=== PATIENT | male | born 1960 | race Caucasian/White ===

== ENCOUNTER 2017-07-28 14:00 | Outpatient (RCR) | payer OTHER, SELFPAY ==
--- NOTE | 2017-06-30 14:51 | HP.PTEVAL_ITS ---
Patient's Visit Information LUKE CARR is a 56 year old M referred to Physical Therapy by DO TENZIN Mendez with a diagnosis of R knee effusion. Date of Evaluation: 06/30/17 Physical Therapist: Steven Simpson DPT, OC - Visit Plan Frequency: 3x /Week Duration: 4 Weeks Plan: 3x/week for 4 weeks for strenghening R knee and hip adn progression back to function and gait without increasing pain or swelling. Progress to home strength. Stretch quad and hip flexors. Rollout as needed. - Subjective Subjective: Slipped planting R knee and felt a pop on 06/14/16. Is getting better some days. Had MRI already adn shows meniscal tear. Had bad swelling and pain since. aspirated last Wednesday adn feel better since then. Buckled this morning. Had h/o meniscal surgery two years ago and was having no problems. Sleep is up every few hours which is not unusual for him. Doctor wants PT. 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 Is still working and does not call off. Activities: basicsd OK. Hobbies includes reading to [employer]. Does everything but it hurts like hell and it pops or gives out. - Pain R knee pain anterior. Pain Intensity (Out of 10): 3 Pain Intensity Range: 3, 10 - Objective Walks in without a limp today I, trasnfers I, bed mobility I. AROM R knee 0-135 , 140 passively. Has pain at end range of ext and flexion. Steps are reciprocal but descending very painful on R, needs rail due to might give out . quads and hip flexors are max tight B R>L. strength is 4+ R knee ext adn flex, ext painful mildly. L knee 5/5. Hip AROM WFL and 4/5. ankles full aROM and 4+/5. Tender to touch medial joint line R minimally. Swelling is only slight noticeable only due to brace tightness on R. - anterior drawer adn yael. - varus and valgus B. + bounce home R - Goals Goal 1:: R knee full ROM without popping without increased pain. Goal Time Frame: 4-6 Weeks Goal 2:: 5/5 strength R knee and hip to minimize future problems. Goal Time Frame: 4-6 Weeks Goal 3:: Walk in community without increased pain. Goal Time Frame: 4-6 Weeks Goal 4:: Steps reciprocally without pain or UE. Goal Time Frame: 4-6 Weeks Goal 5:: Work without increased pain. Goal Time Frame: 4-6 Weeks - Rehabilitation Potential Physical Therapy Diagnosis: R knee effusion and pain, meniscus. Rehabilitation Potential: Fair - Anticipated Interventions Patient/Client Instruction: Educate patient on: Condition, Plan of Care For the Purpose of:: To decrease pain, To improve ability of physical actions for home/community/work/leisure Therapeutic Exercise to Include: Strength training, Flexibilty training, Gait and locomotor training, Passive ROM, Active ROM For the Purpose of:: To decrease pain, To increase ROM, To improve ability of physical actions for home/community/work/leisure, To improve gait and locomotor functions Manual Therapy Techniques to Include: Passive ROM For the Purpose of:: To increase ROM Cryotherapy (ice pack, ice massage): Yes For the Purpose of:: To decrease swelling/inflammation Thank you for the opportunity to evaluate your patient. For Medicare and Medicare HMO plans, please review the plan of care and approve it. It will need to be FAXED BACK to us at [phone] for Medicare purposes. Please let me know if there are questions or concerns regarding this plan of care. Physician Signature: Date:
--- NOTE | 2017-07-28 15:28 | HP.PTDCSUM ---
HP - PT D/C Summary It has been my pleasure to treat LUKE CARR under orders from Alexandre De La Cruz DO, for the diagnosis of R knee effusion for a total of 11 visit(s). Discharge Date: 07/28/17 Please see the following information for a summary of their discharge status. - Subjective Subjective: I'm probably a little stronger but I still have intermittent pains. Most prevalent when going up and down stairs. Notes no notable functional improvement though. - Pain R knee pain anterior. Pain Intensity (Out of 10): 0 - Overall Improvement % Improvement: 50 - Objective Objective/Function: AROM Right Knee: 5-145 deg and 154 deg passively. 0/10 pain today. - Goals Goal 1:: R knee full ROM without popping without increased pain. Goal Progress: Goal Met Goal 2:: 5/5 strength R knee and hip to minimize future problems. Goal Progress: not tested. Goal 3:: Walk in community without increased pain. Goal Progress: Goal Met Goal 4:: Steps reciprocally without pain or UE. Goal Progress: Progressing Goal 5:: Work without increased pain. Goal Progress: Goal Met - Plan Plan: Probable dschare to independent. Pt does not wish to return for final check, says he is doing OK and no pain or limitations except sharp transient pain up steps. - D/C Information Discharge Comments: Pt feeling good and ready to be done. Will f/u with doctor at [facility] but does nto feel he needs further therapy. If there are questions or concerns regarding this patient's physical therapy, please feel free to call me at [phone]. Thank you for the referral of this patient. Sincerely, Steven Simpson, DPT, OC
== END 2017-07-28 19:00 | disposition home or self-care (01) ==
LOC: PT 14:00
PROVIDERS: Family Provider Family Medicine; PCP Family Medicine; Visit Provider Orthopaedic Surgery
DX: M25.461 Effusion, right knee (principal)
CPT/HCPCS: 97110; 97161

== ENCOUNTER → 2018-06-22 11:34 | Outpatient (CLI) | payer OTHER, SELFPAY ==
[2018-06-22 11:56] LABS: Erythrocyte Sedimentation Rate 4 mm/hr (0-20)
[2018-06-22 12:05] LABS: Absolute Lymphocyte Count 1.41 X10^3/ul (0.83-4.51); Absolute Neutrophil Count 2.8 X10^3/uL (2.0-7.7); Basophil# 0.03 X10^3/uL; Basophil% 0.6 % (0-1); Eosinophil# 0.08 X10^3/uL; Eosinophils% 1.7 % (0-5); Hematocrit 41.4 % (40-54); Hemoglobin 14.3 g/dl (13.0-16.5); Lymphocyte # 1.41 X10^3/ul (4.0); Lymphocyte % 29.9 % (19-41); Mean Corp Hgb Conc 34.5 g/gl (32-36); Mean Corpuscular Hgb 30.9 pg (27.0-32.0); Mean Corpuscular Volume 89.4 fL (80-94); Mean Platelet Vol. 9.1 fl (6.2-12.0); Monocyte# 0.34 X10^3/uL; Monocyte% 7.2 % (0-10); Neutrophil # 2.84 X10^3/uL (2.7-7.7); Neutrophil % 60.4 % (47-70); Platelet Count 277 K/mm3 (150-450); RBC Distribution Width SD 42.3 fl (35.1-43.9); Red Blood Count 4.63 M/mm3 (4.6-6.2); White Blood Count 4.7 K/mm3 (4.4-11.0)
[2018-06-22 12:06] LABS: POSITIVE COUNT NO; POSITIVE DIFFERENTIAL NO; POSITIVE MORPHOLOGY NO
[2018-06-22 12:17] LABS: ALB/GLOB Ratio 1.2 RATIO (0.9-2.4); AST(SGOT) 26 U/L (15-37); Alanine Aminotransfer ALT/SGPT 50 U/L (16-61); Albumin, Serum 4.2 g/dL (3.2-5.0); Alkaline Phosphatase 78 U/L (45-117); Anion Gap 8 (5-15); BUN 16 mg/dL (7-18); BUN/Creat Ratio 16.3 RATIO (10-20); Chloride 103 mmol/L (98-107); Creatinine, Serum 0.98 mg/dL (0.70-1.30); EST Glomerular Filtration Rate 84 mL/min (>60); Est Glom Filt Rate - Afr Amer 101 mL/min (>60); Globulin 3.5 g/dL (2.2-4.2); Glucose 89 mg/dL (74-106); Protein, Total 7.7 g/dL (6.4-8.2); Sodium Level 140 mmol/L (136-145); Thyroid Stim Hormone (TSH) 1.69 uIU/mL (0.358-3.74)
[2018-06-22 12:18] LABS: Vitamin B12 336 pg/mL (211-911); Vitamin D,25 Hydroxy 26.5 ng/mL (29.95-100.01)
--- OUTSIDE RECORDS SUMMARY | 2018-08-27 07:41 | XMS RPT_ITS ---
:1960 Author Organization OHIP Care Team Providers Name Role Phone Reyes Smith Attending Unavailable Reyes Smith Primary Care Unavailable Reyes Smith Attending Unavailable Reyes Smith Referring Unavailable Reyes Smith Primary Care Unavailable Alexandre De La Cruz Attending Unavailable Alexandre De La Cruz Referring Unavailable Reyes Smith Primary Care Unavailable Alexandre De La Cruz Attending Unavailable Reyes Smith Referring Unavailable Reyes Smith Primary Care Unavailable ASSESSMENT, HEALTH RISK Attending Unavailable Reyes Smith Primary Care Unavailable PROBLEMS PROBLEMS DATE TYPE CONDITION / CODE ATTENDING STATUS SOURCE 09/17/2017 Unknown S83.242D - Other Alexandre De La Cruz Active [place] tear of medial Community meniscus, current Hospital injury, left Repository knee, subsequent encounter / S83.242D(ICD-10) 09/17/2017 Unknown S83.511D - Sprain Jono, Alexandre Active [place] of anterior Community cruciate ligament Hospital of right knee, Repository subsequent encounter / S83.511D(ICD-10) 09/17/2017 Unknown S83.411D - Sprain Jono, Alexandre Active [place] of medial Community collateral Hospital ligament of right Repository knee, subsequent encounter / S83.411D(ICD-10) 11/17/2017 Unknown M25.461 - Alexandre De La Cruz Active [place] Effusion, right [facility] knee / Hospital M25.461(ICD-10) Repository PROCEDURES PROCEDURES No Procedure Records FoundRESULTS RESULTS BRAIN/HEAD WITHOUT Observed: 06/27/2018 Status: F Source: [place] CONTRAST 7:14 AM [facility] REPOSITORY [facility] Imaging Services [address] [place] [address] Brain/Head without Contrast MR#: [id number] Acct: [id number] Name: LUKE CARR Rep #: [id number] : 1960 M 57 From: Nino Hooper MD PCP: Reyes Smith MD Status: REG CLI Study: Brain/Head without Contrast Date of Exam: 06/27/18 Exam# [id number] Ordering Dr: Dimitri Smith MD STUDY: CT BRAIN WITHOUT CONTRAST REASON FOR EXAM: Male, 57 years old. Dizziness. History of chronic sinusitis. RADIATION DOSAGE (If Supplied By Facility): CTDIvol = ( 44.99 ) mGy, DLP = ( 779.24 ) mGycm TECHNIQUE: Transaxial CT imaging of the brain was performed without administration of intravenous contrast material. Individualized dose optimization techniques were used for this CT. COMPARISON: None. FINDINGS: Normal soft tissue structures. Normal calvarium. Normal size ventricles and extra-axial spaces for the patient's age. Normal white matter tracts of the cerebral hemispheres. Normal basal ganglia and thalami. Normal brainstem. Normal cerebellum. There is no intracranial hemorrhage. There are no findings of an acute ischemic infarction. Nodular mucosal thickening at the base of the left maxillary sinus. CT/Brain/Head without Contrast IMPRESSION: Normal unenhanced CT scan of the brain. Nodular mucosal thickening at the base of the left maxillary sinus. Electronically Signed: Nion Hooper MD at 13:07 EST Tel [phone], Service support , CC: Reyes Smith MD Radio Host: Signed SINUS/FACIAL BONE Observed: 06/27/2018 Status: F Source: [place] 7:14 AM [facility] REPOSITORY [facility] Imaging Services [address] [place] [address] Sinus/Facial Bone MR#: [id number] Acct: [id number] Name: LUKE CARR Rep #: [id number] : 1960 57 From: Nino Hooper MD PCP: Reyes Smith MD Status: REG CLI Study: Sinus/Facial Bone Date of Exam: 06/27/18 Exam# [id number] Ordering Dr: Dimitri Smith MD STUDY: CT MAXILLOFACIAL SINUSES REASON FOR EXAM: Male, 57 years old. Dizziness/sinusitis. RADIATION DOSAGE (If Supplied By Facility): CTDIvol = ( 29.38 ) mGy, DLP = ( 422.57 ) mGycm TECHNIQUE: The patient was scanned in a multi detector CT scanner. High resolution axial imaging was performed without the administration of intravenous contrast material. Sagittal and coronal images were reconstructed. Individualized dose optimization techniques were used for this CT. COMPARISON: Comparison is made with prior study dated June 19, 2014. FINDINGS: FRONTAL SINUSES: Normal aeration, without mucosal inflammatory disease. ETHMOIDAL SINUSES: Minimal mucosal thickening of the ethmoid sinuses. MAXILLARY SINUSES: Nodular mucosal thickening at the base of the left maxillary sinus. This is unchanged. SPHENOIDAL SINUSES: Normal aeration, without mucosal inflammatory disease. There is patency of the bilateral maxillary infundibuli with normal uncinate processes, ethmoid bullae, and hiatus semilunaris. Normal bilateral middle turbinates. Normal bilateral inferior turbinates. Nasal septal deviation towards the right side of the midline. There is patency of the bilateral nasal airways. The visualized osseous structures are normal. The visualized bilateral orbital contents are normal. CT/Sinus/Facial Bone IMPRESSION: Stable examination. Electronically Signed: Nino Hooper MD at 13:12 EST Tel [phone], Service support , CC: Reyes Smith MD Radio Host: Signed ERYTHROCYTE SED RATE Collected: 06/22/2018 Status: F Source: [place] 11:45 AM [facility] REPOSITORY TYPE CODE TESTS RESULT OUT OF RANGE REFERENCE UNITS LAB L102.0000 0-20 mm/hr Normal SED RATE 4 Performed By: #### L101.9900, L100.0100, L500.4050, L501.9520, L503.0105, L506.1000 #### [facility] [address] [place], [address] CBC W/DIFF, AUTOMATED Collected: 06/22/2018 Status: F Source: [place] 11:45 AM [facility] REPOSITORY TYPE CODE TESTS RESULT OUT OF RANGE REFERENCE UNITS LAB L100.1000 4.4-11.0 K/mm3 Normal WBC 4.7 LAB L100.1200 4.6-6.2 M/mm3 Normal RBC 4.63 LAB L100.1300 13.0-16.5 g/dl Normal HGB 14.3 LAB L100.1400 40-54 % Normal HCT 41.4 LAB L100.1500 80-94 fL Normal MCV 89.4 LAB L100.1600 27.0-32.0 pg Normal MCH 30.9 LAB L100.1700 32-36 g/gl Normal MCHC 34.5 LAB L100.1810 11.6-14.6 % Normal RDW CV 13.0 LAB L100.1820 35.1-43.9 fl Normal RDW SD 42.3 LAB L100.1900 150-450 K/mm3 Normal PLT 277 LAB L100.2000 6.2-12.0 fl Normal MPV 9.1 LAB L100.2100 47-70 % Normal NEUT% 60.4 LAB L100.2200 19-41 % Normal LY% 29.9 LAB L100.2300 0-10 % Normal MONO% 7.2 LAB L100.2400 0-5 % Normal EO% 1.7 LAB L100.2500 0-1 % Normal BASO% 0.6 LAB L100.2550 0.0-0.9 % Normal IM GRAN % 0.200 Result Comment: IG% - Immature Granulocytes (promyelocytes, myelocytes and metamyelocytes) > 1% indicates that a LEFT SHIFT is Present. LAB L100.2620 2.0-7.7 X10 3/uL Normal Absolute Neut 2.8 LAB L100.2720 0.83-4.51 X10 3/ul Normal Absolute Lymph 1.41 Performed By: #### L101.9900, L100.0100, L500.4050, L501.9520, L503.0105, L506.1000 #### [facility] [address] [place], [place], [address] COMPREHENSIVE METABOLIC Collected: 06/22/2018 Status: F Source: [facility] 11:45 AM [facility] REPOSITORY TYPE CODE TESTS RESULT OUT OF RANGE REFERENCE UNITS LAB L501.0100 74-106 mg/dL Normal GLU 89 Result Comment: Please note revised GLUCOSE reference range effective 2017. LAB L501.1000 7-18 mg/dL Normal BUN 16 LAB L501.1100 0.70-1.30 mg/dL Normal CREAT,SERUM 0.98 Result Comment: The validity of the calculated GFR AND GFRAA in patients over 70 years has not been determined. Clinical correlation is essential. LAB L501.1110 >60 mL/min Normal EST GFR 84 Result Comment: Non- GFR Calc LAB L501.1115 >60 mL/min Normal EST GFR - AA 101 Result Comment: GFR Calc LAB L501.1300 10-20 RATIO Normal BUN/CRE 16.3 LAB L501.1500 6.4-8.2 g/dL T Normal PROT 7.7 LAB L501.1800 3.2-5.0 g/dL Normal ALB 4.2 LAB L501.1950 2.2-4.2 g/dL Normal GLOB 3.5 LAB L501.2000 0.9-2.4 RATIO Normal A/G 1.2 LAB L501.2200 8.5-10.1 mg/dL CA Normal 9.0 LAB L501.4100 15-37 U/L Normal AST 26 LAB L501.4305 45-117 U/L Normal ALK P 78 LAB L501.4405 16-61 U/L Normal ALT 50 LAB L501.4600 0.20-1.00 mg/dL T Normal BILI 0.30 LAB L501.5300 136-145 mmol/L NA Normal 140 LAB L501.5600 3.5-5.1 mmol/L K Normal 4.0 LAB L501.5900 98-107 mmol/L CL Normal 103 LAB L501.6100 21.0-32.0 mmol/L Normal CO2 29.0 LAB L501.6200 5-15 Normal GAP 8 Performed By: #### L101.9900, L100.0100, L500.4050, L501.9520, L503.0105, L506.1000 #### [facility] [address] [place] [address], [address] THYROID STIM HORMONE Collected: 06/22/2018 Status: F Source: [place] ([facility]) 11:45 AM [facility] REPOSITORY TYPE CODE TESTS RESULT OUT OF RANGE REFERENCE UNITS LAB L501.9520 0.358-3.74 uIU/mL Normal TSH 1.69 Performed By: #### L101.9900, L100.0100, L500.4050, L501.9520, L503.0105, L506.1000 #### [facility] [address] [place], [address] VITAMIN B12 Collected: 06/22/2018 Status: F Source: [place] 11:45 AM [facility] REPOSITORY TYPE CODE TESTS RESULT OUT OF RANGE REFERENCE UNITS LAB L503.0105 211-911 pg/mL Normal Vitamin B12 336 Performed By: #### L101.9900, L100.0100, L500.4050, L501.9520, L503.0105, L506.1000 #### [facility] [address] [place], [address] VITAMIN D,25 HYDROXY Collected: 06/22/2018 Status: F Source: [place] 11:45 AM [facility] REPOSITORY TYPE CODE TESTS RESULT OUT OF REFERENCE UNITS RANGE LAB L506.1000 29.95-100.01 ng/mL Low Vitamin D 26.5 25-OH Result Comment: Vitamin D 25(OH) Status Range Deficiency <20 ng/mL (50nmol/L) Insuffciency 20 - 30 ng/mL (50 - 75 nmol/L) Sufficiency 30 - 100 ng/mL (75 - 250 nmol/L) Toxicity >100 ng/mL (>250 nmol/L) Performed By: #### L101.9900, L100.0100, L500.4050, L501.9520, L503.0105, L506.1000 #### [facility] [address], [address] CBC, EMPLOYEE Collected: 01/14/2018 Status: F Source: [place] 2:00 PM [facility] REPOSITORY TYPE CODE TESTS RESULT OUT OF RANGE REFERENCE UNITS LAB L100.1000 4.4-11.0 K/mm3 Normal WBC 5.4 LAB L100.1200 4.6-6.2 M/mm3 Normal RBC 4.62 LAB L100.1300 13.0-16.5 g/dl Normal HGB 14.2 LAB L100.1400 40-54 % Normal HCT 41.5 LAB L100.1500 80-94 fL Normal MCV 89.8 LAB L100.1600 27.0-32.0 pg Normal MCH 30.7 LAB L100.1700 32-36 g/gl Normal MCHC 34.2 LAB L100.1810 11.6-14.6 % Normal RDW CV 13.0 LAB L100.1820 35.1-43.9 fl Normal RDW SD 42.3 LAB L100.1900 150-450 K/mm3 Normal PLT 238 LAB L100.2000 6.2-12.0 fl Normal MPV 9.1 LAB L100.2110 47-70 % Normal NEUT% 57.2 LAB L100.2210 19-41 % Normal LY% 34.4 LAB L100.2310 0-10 % Normal MONO% 5.4 LAB L100.2410 0-5 % Normal EO% 2.2 LAB L100.2510 0-1 % Normal BASO% 0.4 LAB L100.2620 2.0-7.7 X10 3/uL Normal Absolute Neut 3.1 LAB L100.2720 0.83-4.51 X10 3/ul Normal Absolute Lymph 1.84 Performed By: #### L100.0200 #### [facility] [address] [facility] [place], [place], [id number] NICOTINE URINE DRUG Collected: 01/14/2018 Status: F Source: [place] SCREEN 2:00 PM [facility] REPOSITORY TYPE CODE TESTS RESULT OUT OF RANGE REFERENCE UNITS LAB L505.6250 TO BE Normal CONFIRMED Result Comment: CONFIRMATORY TESTING FOR ALL POSITIVE URINE DRUG SCREEN RESULTS WILL ONLY BE SENT OUT UPON PHYSICIAN ORDER. The results of Urine Drug Screen methods provide only preliminary analytical test results. A more specific alternate chemical method must be used in order to obtain a confirmed analytical result. Gas chromatography/mass spectrometery (GC/MS) is the preferred confirmatory method. Clinical consideration and professional judgement should be applied to any drug of abuse test result, particularly when preliminary positive results are used. LAB L505.6270 <200 ng/mL Normal COT DRG Positive SCREEN Result Comment: Cotinine is the first-stage metabolite of Nicotine. Performed By: #### L505.6240 #### [facility] [address] [facility]. [place], [place], [address] EMPLOYEE PROFILE Collected: 01/14/2018 Status: F Source: [place] 2:00 PM [facility] REPOSITORY TYPE CODE TESTS RESULT OUT OF RANGE REFERENCE UNITS LAB L501.0100 74-106 mg/dL Normal GLU 80 Result Comment: Please note revised GLUCOSE reference range effective 2017. LAB L501.1000 7-18 mg/dL Normal BUN 16 LAB L501.1100 0.70-1.30 mg/dL Normal CREAT,SERUM 1.04 Result Comment: The validity of the calculated GFR AND GFRAA in patients over 70 years has not been determined. Clinical correlation is essential. LAB L501.1110 >60 mL/min Normal EST GFR 79 Result Comment: Non- GFR Calc LAB L501.1115 >60 mL/min Normal EST GFR - AA 95 Result Comment: GFR Calc LAB L501.1300 10-20 RATIO Normal BUN/CRE 15.4 LAB L501.1400 3.5-7.2 mg/dL Normal URIC 4.8 Result Comment: The drugs N-Acetylcysteine and Metamizole may falsely depress this assay. LAB L501.1500 6.4-8.2 g/dL Normal T PROT 7.9 LAB L501.1800 3.2-5.0 g/dL Normal ALB 4.1 LAB L501.1950 2.2-4.2 g/dL Normal GLOB 3.8 LAB L501.2000 0.9-2.4 RATIO Normal A/G 1.1 LAB L501.2200 8.5-10.1 mg/dL Normal CA 8.8 LAB L501.2300 2.5-4.9 mg/dL Normal PHOS 3.1 LAB L501.4100 15-37 U/L Normal AST 24 LAB L501.4305 45-117 U/L Normal ALK P 75 LAB L501.4405 16-61 U/L Normal ALT 42 LAB L501.4600 0.20-1.00 mg/dL Normal T BILI 0.40 LAB L501.4700 0.00-0.30 mg/dL Normal D BILI 0.12 LAB L501.4900 200 mg/dL High CHOL 241 Result Comment: <200 mg/dL Desirable 200-240 mg/dL Borderline >240 mg/dL High Risk LAB L501.5000 mg/dL Normal TRIG 141 Result Comment: The drugs N-Acetylcysteine and Metamizole may falsely depress this assay. Serum Triglycerides Reference Interval Normal <150 mg/dL Borderline high 150 - 199 mg/dL High 200 - 499 mg/dL Very High > or = 500 mg/dL LAB L501.5300 136-145 mmol/L Normal NA 139 LAB L501.5600 3.5-5.1 mmol/L Normal K 4.2 LAB L501.5900 98-107 mmol/L Normal CL 104 LAB L501.6100 21.0-32.0 mmol/L Normal CO2 29.0 LAB L501.6200 5-15 Normal 6 GAP LAB L501.6400 mg/dL Normal HDL 42 Result Comment: The drugs N-Acetylcysteine and Metamizole may falsely depress this assay. Reference Range HDL <40 mg/dL Low HDL Cholesterol HDL >or= 60 mg/dL High HDL Cholesterol LAB L501.6475 Normal CHOL:HDL 5.70 LAB L501.6500 0-130 mg/dL High LDL 171 LAB L501.6600 5-40 mg/dL Normal VLDL 28 LAB L504.2610 87-241 U/L Normal LDH 179 Performed By: #### L500.2900 #### [facility] [address], [address] URINALYSIS, EMPLOYEE Collected: 01/14/2018 Status: F Source: [place] 2:00 PM [facility] REPOSITORY TYPE CODE TESTS RESULT OUT OF RANGE REFERENCE UNITS LAB L400.3000 Yellow COLOR Normal Yellow LAB L400.3050 Clear Normal CLARITY Clear LAB L400.3200 Normal mg/dl Normal GLUCOSE, UR Normal LAB L400.3300 Negative mg/dL Normal BILIRUBIN URINE Negative LAB L400.3400 Negative mg/dl Normal KETONE UR Negative LAB L400.3465 1.002-1.030 Normal SP.GR. DIPSTX 1.015 LAB L400.3550 5.0 - 8.0 pH UR Normal 6.0 LAB L400.3600 Negative mg/dl High PROT 15 DIPSTX LAB L400.3700 Normal mg/dl High 1 UROBILI LAB L400.3750 Negative Normal NITRITE UR Negative LAB L400.3780 Negative /ul High 25 OCCULT BLOOD-UR LAB L400.3800 Negative /ul High LEUK 25 ESTERASE Performed By: #### L400.0100 #### [facility] [address] [place], [place], [address] ORTHOPEDIC VISIT Observed: 08/16/2017 Status: F Source: [place] REPORT 9:35 AM [facility] REPOSITORY [facility] [address] [place] [address] [address] [place] [address] OFFICE VISIT Date of Service: 08/06/17 MR#: [id number] Acct: [id number] Name: LUKE CARR Rep #: [id number] : 1960 Provider: Alexandre De La Cruz DO Age/Sex: 56/M Location: [facility] Status: Signed Intake Intake Visit Reasons: RIGHT KNEE Allergies No Known Allergies Allergy (Verified 08/06/17 13:24) Medications NK [NK] 08/06/17 [History Confirmed 08/06/17] PFSH Surgical History History of arthroscopy of left shoulder (Inactive) History of lumbar fusion (Inactive) 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 He received an injection on 06/25/17, however, he does not feel it made much of a difference. He complains of pain medially when walking up stairs, he states it feels like someone is stabbing him with screwdriver. He denies radiation of pain. No swelling. No tingling/numbness. ROS Const Reports system reviewed and no additional complaints, except as docu Eyes Reports system reviewed and no additional complaints, except as docu ENT Reports system reviewed and no additional complaints, except as docu Card Reports system reviewed and no additional complaints, except as docu Resp Reports system reviewed and no additional complaints, except as docu GI Reports system reviewed and no additional complaints, except as docu Reports system reviewed and no additional complaints, except as docu Musc Reports joint pain Skin/Breast Reports system reviewed and no additional complaints, except as docu Neuro Yes system reviewed and no additional complaints, except as docu Psych Reports system reviewed and no additional complaints, except as docu Endo Reports system reviewed and no additional complaints, except as docu Teo/Lymph Reports system reviewed and no additional complaints, except as docu Aller/Immun Reports system reviewed and no additional complaints, except as docu Ortho Exam Right Knee Skin/Wound: Yes CDI Contralateral Normal: Yes Swelling: No Homans Sign: No 1+: Effusion Knee ROM: Yes ROM-Extension -20 to 0, Yes ROM-Passive Flexion 0-140, Yes ROM-Flexion 0-140, Yes ROM-Passive Extension -10 to 0 Examination: Yes Med jt line tenderness, Yes [employer] Test Quad Atrophy: No Stability: NML: Posterior Drawer, NML: Valgus 0, NML: Varus 0, NML: Varus 30, NML: Dial 90, NML: Dial 30, 1+: Valgus 30, 2+: Anterior Drawer Popliteal Adenopathy: No Apprehension with Lateral Translation: No Patellar Tilt Normal: Yes Patella Grind: No Left Knee Skin/Wound: Yes CDI Contralateral Normal: Yes Swelling: No Homans Sign: No Quad Atrophy: No Stability: NML: Anterior Drawer, NML: Zena, NML: Posterior Drawer, NML: Valgus 0, NML: Valgus 30, NML: Varus 0, NML: Varus 30, NML: Dial 90, NML: Dial 30 Apprehension with Lateral Translation: No Patellar Tilt Normal: Yes Patella Grind: No Assessment AND Plan Problems 1. Other tear of medial meniscus, current injury, left knee, subsequent encounter S83.242D 2. Sprain of anterior cruciate ligament of right knee, subsequent encounter S83.511D 3. Sprain of medial collateral ligament of right knee, subsequent encounter S83.411D 4. Knee effusion, right M25.461 Plan a/p: Continue with present care. Patient is back to work. He has no restrictions at this point time. Patient is out looking for surgical solutions knee at this point time. We will continue to follow conservatively. Patient seem to respond mildly to the injection in terms of improvement of knee effusion and some of the pain. However he still has some pain related to his injury patterns. I told that ultimately discussed decide how he wants to proceed. Remains symptomatic consideration for a knee scope etc. Otherwise conservative care. Patient will follow-up with me on a as needed basis. Any major issues return. Medications Discontinued: Kenalog (triamcinolone acetonide) Disconti2 mg (0.2 mL) Intra-Articular ONCE NS M25.461 nued Reason: Ordered/Entered in error Coding Level of Care Code Off vis,est,level 3 Diagnoses Other tear of medial meniscus, current injury, left knee, subsequent encounter S83.242D Sprain of anterior cruciate ligament of right knee, subsequent encounter S83.511D Sprain of medial collateral ligament of right knee, subsequent encounter S83.411D Knee effusion, right M25.461 08/16/17 0935 <Electronically signed by Alexandre De La Cruz DO> Date Alexandre De La Cruz DO Cosigner Signature: Date (if applicable) CC: PT D/C SUMMARY (1) Observed: 08/02/2017 Status: F Source: [place] 6:46 AM [facility] REPOSITORY [facility] [address] [facility] [place] [address] Fax REHABILITATION SERVICES DISCHARGE SUMMARY MR#: [id number] Acct: [id number] Name: LUKE CARR Rep #: [id number] : 1960 56 From: Steven Simpson DPT, OCS, CSCS Referring Dr.: Alexandre De La Cruz DO Status: REG RCR Insurance: SELF PAY INSURANCE HP - PT D/C Summary It has been my pleasure to treat LUKE CARR under orders from Alexandre De La Cruz DO, MTODTiara for the diagnosis of R knee effusion for a total of 11 visit(s). Discharge Date: 07/28/17 Please see the following information for a summary of their discharge status. - Subjective Subjective: I'm probably a little stronger but I still have intermittent pains. Most prevalent when going up and down stairs. Notes no notable functional improvement though. - Pain R knee pain anterior. Pain Intensity (Out of 10): 0 - Overall Improvement % Improvement: 50 - Objective Objective/Function: AROM Right Knee: 5-145 deg and 154 deg passively. 0/10 pain today. - Goals Goal 1:: R knee full ROM without popping without increased pain. Goal Progress: Goal Met Goal 2:: 5/5 strength R knee and hip to minimize future problems. Goal Progress: not tested. Goal 3:: Walk in community without increased pain. Goal Progress: Goal Met Goal 4:: Steps reciprocally without pain or UE. Goal Progress: Progressing Goal 5:: Work without increased pain. Goal Progress: Goal Met - Plan Plan: Probable dschare to independent. Pt does not wish to return for final check, says he is doing OK and no pain or limitations except sharp transient pain up steps. - D/C Information Discharge Comments: Pt feeling good and ready to be done. Will f/u with doctor at [facility] but does nto feel he needs further therapy. If there are questions or concerns regarding this patient's physical therapy, please feel free to call me at [phone]. Thank you for the referral of this patient. Sincerely, Steven Simpson, DPT, OC <Electronically signed by Steven SALAZART, OCS, CSCS> 08/02/17 0646 CC: Reyes Smith MD; Alexandre De La Cruz DO EBG Signed ALLERGIES ALLERGIES DATE TYPE / CODE NAME / CODE REACTION SEVERITY SOURCE 08/06/2017 Drug No Known Unknown [facility] Allergy/4160 Allergies/F00 [facility] 99383(SNOMED [id number](RXNOR Repository CT) M) ENCOUNTERS ENCOUNTERS ADMIT/DISCHARGE ACCOUNT ADMITTING ENCOUNTER LOCATION SOURCE NUMBER CLASS 06/27/2018 [id number] Ambulatory [place] Kate 9 [facility] ing:CT Repository 06/22/2018 [id number] Ambulatory [place] Kate 8 [facility] ing:LAB Repository 01/14/2018 [id number] Ambulatory [place] 6 [facility] ing:EMPH Repository 08/06/2017/ [id number] Ambulatory BMSBuilding:B Kate 8 6 [facility] Repository 07/28/2017/ [id number] Ambulatory [place] 8 8 [facility] ing:PT Repository PAYERS PAYERS ENCOUNTER GUARANTOR PAYER SUBSCRIBER SOURCE 06/27/2018 LUKE [id number] Primary Insurance:[facility] LUKE Love [facility] YEODOB: [place] [id number] [id number], [place] [address]Qcp: Number: Repository [id number] (HP) Date:[id number] [address], [place] [address]TR: CHECK WEBSITE 06/27/2018 Secondary NOT GIVENUNK Kate Insurance:SELF PAY [facility] Number: Effective Repository Date:2018-06-23 06/22/2018 LUKE Morel [id number] Primary Insurance:[facility] YEODOB: [address] , [place] [address]Jsk: Number: Repository [id number] (HP) Date:[id number] [address], [place] [address]XL: CHECK WEBSITE 06/22/2018 Secondary NOT GIVENUNK [place] Insurance:SELF PAY [facility] Number: Effective Repository Date:2018-06-22 01/14/2018 LUKE Morel [id number] Primary NOT GIVENUNK [place] TR Insurance:SELF PAY [place] [address]Tel: Number: Effective Repository Date:2018-01-14 (HP) 08/06/2017 LUKE Morel [id number] Primary Insurance:[facility] YEODOB: [address] , [place] [address]Cek: Number: Repository [id number] (HP) Date:[id number] [address], [place] [address]EM: CHECK WEBSITE 08/06/2017 Secondary NOT GIVENUNK Kate Insurance:SELF PAY [facility] Number: Effective Repository Date:2017-06-25 07/28/2017 LUKE Morel [id number] Primary Insurance:[facility] [place] [facility] YEODOB: [address] , [place] [address]Kyd: Number: Repository [id number] (HP) Date:0369-43-17U[address] [address], [place] [address]VF: CHECK WEBSITE 07/28/2017 Secondary NOT GIVENUNK [place] Insurance:SELF PAY [facility] Number: Effective Repository Date:2017-06-25
== END ==
PROVIDERS: Family Provider Family Medicine; PCP Family Medicine; Visit Provider Family Medicine
DX: R53.83 Other fatigue (principal)
CPT/HCPCS: 36415; 80053; 82306; 82607; 84443; 85025; 85652

== ENCOUNTER → 2018-06-27 07:11 | Outpatient (CLI) | payer OTHER, SELFPAY ==
--- NOTE | 2018-06-27 07:14 | CT_ITS ---
STUDY: CT MAXILLOFACIAL SINUSES REASON FOR EXAM: Male, 57 years old. Dizziness/sinusitis. RADIATION DOSAGE (If Supplied By Facility): CTDIvol = ( 29.38 ) mGy, DLP = ( 422.57 ) mGycm TECHNIQUE: The patient was scanned in a multi detector CT scanner. High resolution axial imaging was performed without the administration of intravenous contrast material. Sagittal and coronal images were reconstructed. Individualized dose optimization techniques were used for this CT. COMPARISON: Comparison is made with prior study dated June 19, 2014. FINDINGS: FRONTAL SINUSES: Normal aeration, without mucosal inflammatory disease. ETHMOIDAL SINUSES: Minimal mucosal thickening of the ethmoid sinuses. MAXILLARY SINUSES: Nodular mucosal thickening at the base of the left maxillary sinus. This is unchanged. SPHENOIDAL SINUSES: Normal aeration, without mucosal inflammatory disease. There is patency of the bilateral maxillary infundibuli with normal uncinate processes, ethmoid bullae, and hiatus semilunaris. Normal bilateral middle turbinates. Normal bilateral inferior turbinates. Nasal septal deviation towards the right side of the midline. There is patency of the bilateral nasal airways. The visualized osseous structures are normal. The visualized bilateral orbital contents are normal. CT/Sinus/Facial Bone IMPRESSION: Stable examination. Electronically Signed: Nino Hooper MD at 13:12 EST Tel [phone], Service support ,
--- NOTE | 2018-06-27 07:14 | CT_ITS ---
STUDY: CT BRAIN WITHOUT CONTRAST REASON FOR EXAM: Male, 57 years old. Dizziness. History of chronic sinusitis. RADIATION DOSAGE (If Supplied By Facility): CTDIvol = ( 44.99 ) mGy, DLP = ( 779.24 ) mGycm TECHNIQUE: Transaxial CT imaging of the brain was performed without administration of intravenous contrast material. Individualized dose optimization techniques were used for this CT. COMPARISON: None. FINDINGS: Normal soft tissue structures. Normal calvarium. Normal size ventricles and extra-axial spaces for the patient's age. Normal white matter tracts of the cerebral hemispheres. Normal basal ganglia and thalami. Normal brainstem. Normal cerebellum. There is no intracranial hemorrhage. There are no findings of an acute ischemic infarction. Nodular mucosal thickening at the base of the left maxillary sinus. CT/Brain/Head without Contrast IMPRESSION: Normal unenhanced CT scan of the brain. Nodular mucosal thickening at the base of the left maxillary sinus. Electronically Signed: Nino Hooper MD at 13:07 EST Tel [phone], Service support ,
--- OUTSIDE RECORDS SUMMARY | 2018-08-29 14:39 | XMS RPT_ITS ---
[...] - Other Alexandre De La Cruz Active [place] tear of medial Community meniscus, current Hospital injury, left Repository knee, subsequent encounter / S83.242D(ICD-10) 09/17/2017 Unknown S83.511D - Sprain Jono, Alexandre Active [place] of anterior Community cruciate ligament Hospital of right knee, Repository subsequent encounter / S83.511D(ICD-10) 09/17/2017 Unknown S83.411D - Sprain Jono, Alexandre Active [place] of medial Community collateral Hospital ligament of right Repository knee, subsequent encounter / S83.411D(ICD-10) 11/17/2017 Unknown M25.461 - Alexandre De La Cruz Active [place] Effusion, right [facility] knee / Hospital M25.461(ICD-10) Repository PROCEDURES PROCEDURES No Procedure Records FoundRESULTS RESULTS BRAIN/HEAD WITHOUT Observed: 06/27/2018 Status: F Source: [place] CONTRAST 7:14 AM [facility] REPOSITORY [facility] Imaging Services [address] [place] [address] Brain/Head without Contrast MR#: [id number] Acct: [id number] Name: LUKE CARR Rep #: [id number] : 1960 M 57 From: Nino Hooper MD PCP: Reyes Smith MD Status: REG CLI Study: Brain/Head without Contrast Date of Exam: 06/27/18 Exam# [id number] Ordering Dr: Dimitri Smith MD STUDY: CT [...] of the left maxillary sinus. Electronically Signed: Nino Hooper MD at 13:07 EST Tel [phone], Service support , CC: Reyes Smith MD Termite Helper: Signed SINUS/FACIAL BONE Observed: 06/27/2018 Status: F Source: [place] 7:14 AM [facility] REPOSITORY [facility] Imaging Services [address] [place] [address] Sinus/Facial Bone MR#: [id number] Acct: [id number] Name: LUKE CARR Rep #: [id number] : 1960 57 From: Nino Hooper MD PCP: Reyes Smith MD Status: REG CLI Study: Sinus/Facial Bone Date of Exam: 06/27/18 Exam# [id number] Ordering Dr: Dimitri Smith MD STUDY: CT [...] Nino Hooper MD at 13:12 EST Tel [phone], Service support , CC: Reyes Smith MD Termite Helper: Signed ERYTHROCYTE SED RATE Collected: 06/22/2018 Status: F Source: [place] 11:45 AM [facility] REPOSITORY TYPE CODE TESTS RESULT OUT OF RANGE REFERENCE UNITS LAB L102.0000 0-20 mm/hr Normal SED RATE 4 Performed By: #### L101.9900, L100.0100, L500.4050, L501.9520, L503.0105, L506.1000 #### [facility] [address] [place], [address] CBC W/DIFF, AUTOMATED Collected: 06/22/2018 Status: F Source: [place] 11:45 AM [facility] REPOSITORY TYPE CODE TESTS RESULT OUT OF [...] L101.9900, L100.0100, L500.4050, L501.9520, L503.0105, L506.1000 #### [facility] [address] [place], [place], [address] COMPREHENSIVE METABOLIC Collected: 06/22/2018 Status: F Source: [facility] 11:45 AM [facility] REPOSITORY TYPE CODE TESTS RESULT OUT OF [...] L101.9900, L100.0100, L500.4050, L501.9520, L503.0105, L506.1000 #### [facility] [address] [place] [address], 749601 THYROID STIM HORMONE Collected: 06/22/2018 Status: F Source: [place] ([facility]) 11:45 AM [facility] REPOSITORY TYPE CODE TESTS RESULT OUT OF RANGE REFERENCE UNITS LAB L501.9520 0.358-3.74 uIU/mL Normal TSH 1.69 Performed By: #### L101.9900, L100.0100, L500.4050, L501.9520, L503.0105, L506.1000 #### [facility] [address] [place], [address] VITAMIN B12 Collected: 06/22/2018 Status: F Source: [place] 11:45 AM [facility] REPOSITORY TYPE CODE TESTS RESULT OUT OF RANGE REFERENCE UNITS LAB L503.0105 211-911 pg/mL Normal Vitamin B12 336 Performed By: #### L101.9900, L100.0100, L500.4050, L501.9520, L503.0105, L506.1000 #### [facility] [address] [place], [address] VITAMIN D,25 HYDROXY Collected: 06/22/2018 Status: F Source: [place] 11:45 AM [facility] REPOSITORY TYPE CODE TESTS RESULT OUT OF REFERENCE UNITS RANGE LAB L506.1000 29.95-100.01 ng/mL Low Vitamin D 26.5 25-OH Result Comment: Vitamin D 25(OH) Status Range Deficiency <20 ng/mL (50nmol/L) Insuffciency 20 - 30 ng/mL (50 - 75 nmol/L) Sufficiency 30 - 100 ng/mL (75 - 250 nmol/L) Toxicity >100 ng/mL (>250 nmol/L) Performed By: #### L101.9900, L100.0100, L500.4050, L501.9520, L503.0105, L506.1000 #### [facility] [address], [address] CBC, EMPLOYEE Collected: 01/14/2018 Status: F Source: [place] 2:00 PM [facility] REPOSITORY TYPE CODE TESTS RESULT OUT OF [...] Lymph 1.84 Performed By: #### L100.0200 #### [facility] [address] [address] [place], [place], [address] NICOTINE URINE DRUG Collected: 01/14/2018 Status: F Source: [place] SCREEN 2:00 PM [facility] REPOSITORY TYPE CODE TESTS RESULT OUT OF [...] of Nicotine. Performed By: #### L505.6240 #### [facility] [address] [place], [place], [address] EMPLOYEE PROFILE Collected: 01/14/2018 Status: F Source: [place] 2:00 PM [facility] REPOSITORY TYPE CODE TESTS RESULT OUT OF [...] LDH 179 Performed By: #### L500.2900 #### [facility] [address] [place], [address] URINALYSIS, EMPLOYEE Collected: 01/14/2018 Status: F Source: [place] 2:00 PM [facility] REPOSITORY TYPE CODE TESTS RESULT OUT OF [...] 25 ESTERASE Performed By: #### L400.0100 #### [facility] [address] [place], [place], [address] ORTHOPEDIC VISIT Observed: 08/16/2017 Status: F Source: [place] REPORT 9:35 AM [facility] REPOSITORY [facility] [address] [place] [address] [address] [place] [address] OFFICE VISIT Date of Service: 08/06/17 MR#: [id number] Acct: [id number] Name: LUKE CARR Rep #: [id number] : 1960 Provider: Alexandre De La Cruz DO Age/Sex: 56/M Location: [facility] Status: Signed Intake Intake Visit Reasons: RIGHT [...] SUMMARY (1) Observed: 08/02/2017 Status: F Source: [place] 6:46 AM [facility] REPOSITORY [facility] [address] [facility] [address] [place] [address] Fax REHABILITATION SERVICES DISCHARGE SUMMARY MR#: [id number] Acct: [id number] Name: LUKE CARR Rep #: [id number] : 1960 56 From: Steven Simpson DPT, [...] be done. Will f/u with doctor at [facility] but does nto feel he needs further therapy. If there are questions or concerns regarding this patient's physical therapy, please feel free to call me at [phone]. Thank you for the referral of this patient. Sincerely, Steven Simpson, DPT, OC <Electronically signed by Steven SALAZART, OCS, CSCS> 08/02/17 0646 CC: Reyes Smith MD; Alexandre De La Cruz DO EBG Signed ALLERGIES ALLERGIES DATE TYPE / CODE NAME / CODE REACTION SEVERITY SOURCE 08/06/2017 Drug No Known Unknown [facility] Allergy/4160 Allergies/F00 [facility] [address]22(SNOMED [id number](RXNOR Repository CT) M) ENCOUNTERS ENCOUNTERS ADMIT/DISCHARGE ACCOUNT ADMITTING ENCOUNTER LOCATION SOURCE NUMBER CLASS 06/27/2018 [id number] Ambulatory [place] Kate 9 [facility] ing:CT Repository 06/22/2018 [id number] Ambulatory [place] Kate 8 [facility] ing:LAB Repository 01/14/2018 [id number] Ambulatory [place] 6 [facility] ing:EMPH Repository 08/06/2017/ [id number] Ambulatory BMS[facility]:B Kate 8 6 [facility] Repository 07/28/2017/ [id number] Ambulatory [place] Kate 8 8 [facility] ing:PT Repository PAYERS PAYERS ENCOUNTER GUARANTOR PAYER SUBSCRIBER SOURCE 06/27/2018 LUKE [id number] Primary Insurance:[facility] LUKE Love [facility] YEODOB: [place] [address] 9589-14-[place], [place] [address]Fpt: Number: Repository [id number] (HP) Date:1909-74-20[address] [address], [place] [address]CN: CHECK WEBSITE 06/27/2018 Secondary NOT GIVENUNK [place] Insurance:SELF PAY [facility] Number: Effective Repository Date:2018-06-23 06/22/2018 LUKE Morel [id number] Primary Insurance:[facility] [place] [facility] YEODOB: [address] , [place] [address]Upi: Number: Repository [id number] (HP) Date:9148-55-74HE [address] [address], [place] [address]MT: CHECK WEBSITE 06/22/2018 Secondary NOT GIVENUNK [place] Insurance:SELF PAY [facility] Number: Effective Repository Date:2018-06-22 01/14/2018 LUKE Morel [id number] Primary NOT GIVENUNK [place] TR Insurance:SELF PAY [place] [address]Tel: Number: Effective Repository Date:2018-01-14 (HP) 08/06/2017 LUKE Morel [id number] Primary Insurance:[facility] [place] [place] [facility] YEODOB: [address] , [place] [address]Hgj: Number: Repository [id number] (HP) Date:4500-88-16[address] [address], [place] [address]CW: CHECK WEBSITE 08/06/2017 Secondary NOT GIVENUNK [place] Insurance:SELF PAY [facility] Number: Effective Repository Date:2017-06-25 07/28/2017 LUKE Morel [id number] Primary Insurance:[facility] [place] [facility] YEODOB: [address] , [place] [address]Xhd: Number: Repository [id number] (HP) Date:8814-14-81RT [address] [address], [place] [address]UZ: CHECK WEBSITE 07/28/2017 Secondary NOT GIVENUNK [place] Insurance:SELF PAY [facility] Number: Effective Repository Date:2017-06-25
== END ==
PROVIDERS: Family Provider Family Medicine; PCP Family Medicine; Referring Provider Family Medicine; Visit Provider Family Medicine
DX: J32.9 Chronic sinusitis, unspecified (principal); R42 Dizziness and giddiness
CPT/HCPCS: 70450; 70486

== ENCOUNTER → 2021-05-15 16:32 | Outpatient (CLI) | payer OTHER, SELFPAY ==
--- NOTE | 2021-05-15 16:36 | RAD_ITS ---
STUDY: X-RAY - RIGHT KNEE REASON FOR EXAM: Right knee pain, right knee injury 4 years ago. TECHNIQUE: 4 view(s) of the knee. COMPARISON: Radiographs 06/14/2017. FINDINGS: Normal visualized distal femur. Normal visualized proximal tibia and fibula. Normal proximal tibiofibular articulation. Normal medial femorotibial compartment. Normal lateral femorotibial compartment. Normal patellofemoral articulation. The soft tissue structures are unremarkable. RAD/Knee 4 or More Views IMPRESSION: Unremarkable x-ray examination of the right knee. Electronically Signed: Adrien Kaiser MD at 14:17 EST Tel , Service support ,
== END ==
PROVIDERS: PCP Family Medicine; Referring Provider Family Medicine; Visit Provider Family Medicine
DX: M25.561 Pain in right knee (principal)
CPT/HCPCS: 73564

== ENCOUNTER 2021-08-27 10:29 | Outpatient (CLI) | payer OTHER, SELFPAY ==
--- NOTE | 2021-08-27 10:33 | RAD_ITS ---
INDICATION: POSSIBLE KIDNEY STONE EXAMINATION/TECHNIQUE: X-RAY - XR Abdomen W/ Decub and/or Erect Views COMPARISON: None FINDINGS: BOWEL GAS PATTERN: No abnormally distended, air-filled bowel loops or air fluid levels. FREE AIR: Not assessed on a single supine view. ORGANOMEGALY: Not seen. CALCIFICATIONS: No genitourinary stone visible. LOWER CHEST: No acute pathology. BONES AND SOFT TISSUES: L4-5 and L5-S1 prior osseous fusion and laminectomy with transpedicular screws and bridging rods. RAD/Abd Inc Decub and/or Erect IMPRESSION: No genitourinary stone visible. Electronically Signed: Alexandre Ch DO at 20:21 EDT ,
== END 2021-08-27 23:59 | disposition home or self-care (01) ==
LOC: MTRAD 10:30
PROVIDERS: PCP Family Medicine; Referring Provider Family Medicine; Visit Provider Family Medicine
DX: R10.9 Unspecified abdominal pain (principal)
CPT/HCPCS: 74019

== ENCOUNTER 2021-08-29 12:18 | Outpatient (CLI) | payer OTHER, SELFPAY ==
--- NOTE | 2021-08-29 12:36 | CT_ITS ---
HISTORY: flank pain. TECHNIQUE: Helically acquired images were obtained of the abdomen and pelvis with IV contrast. A radiation dose optimization technique was used for this scan. Contrast dosage and agent: 100 mL Isovue 300 IV/Gastrografin p.o. # of images incl. paperwork: 407. COMPARISON: XR 08/27/2021. FINDINGS: LOWER CHEST: Lung bases clear. BOWEL: Bowel including appendix nondilated. Extensive sigmoid diverticulosis with very mild stranding at the sigmoid colon. PERITONEUM: No free air, pericolonic fluid collection, or significant ascites. LIVER/SPLEEN/PANCREAS: Homogeneous. GALLBLADDER/BILIARY TREE: Gallbladder present. KIDNEYS: 8 mm complex lesion in the left lower pole. No hydronephrosis. ADRENAL GLANDS: Unremarkable. VESSELS: Mildly ectatic infrarenal abdominal aorta with atherosclerosis noted. PELVIC ORGANS: Unremarkable. ABDOMINAL WALL: Scrotal surgical clips noted. BONES: Chronic mild anterior wedging of L3. Posterior spinal fusion hardware of L4-S1 with interbody fusion material and decompressive laminectomies. CT/Abdomen/Pelvis WITH Contrast IMPRESSION: Very mild acute sigmoid diverticulitis. 8 mm indeterminate left renal lesion; recommend follow-up. Individualized dose optimization techniques were used for this CT. at 1516 Reported and signed by: Myra Prakash MD Electronically Signed: Myra Prakash MD at 15:14 EDT Reading Location ID and State: [facility] / [place] Tel , Service support ,
== END 2021-08-29 23:59 | disposition home or self-care (01) ==
PROVIDERS: PCP Family Medicine; Referring Provider Family Medicine; Visit Provider Family Medicine
DX: R10.9 Unspecified abdominal pain (principal)
CPT/HCPCS: 74177; Q9967

== ENCOUNTER 2021-09-04 09:50 | Outpatient (CLI) | payer OTHER, SELFPAY ==
[2021-09-04 11:28] LABS: PSA,Total - Annual Screen 0.64 ng/mL (0.00-4.00)
== END 2021-09-04 23:59 | disposition home or self-care (01) ==
LOC: LAB 09:51
PROVIDERS: PCP Family Medicine; Referring Provider Urology; Visit Provider Urology
DX: Z12.5 Encounter for screening for malignant neoplasm of prostate (principal)
CPT/HCPCS: 36415; 84153; G0103

== ENCOUNTER → 2022-03-10 | Outpatient (CLI) | payer OTHER, SELFPAY ==
--- NOTE | 2022-03-10 12:40 | RAD_ITS ---
EXAM: XR LEFT HIP WITH PELVIS WHEN PERFORMED, 2 OR 3 VIEWS CLINICAL INDICATION: PAIN TECHNIQUE: Two or three views of the left hip with pelvis when performed. This report was created using [email or web address] report generation technology. COMPARISON: None. FINDINGS: BONES/JOINTS: Unremarkable. No displaced fracture. No destructive or sclerotic lesions. Note that overlapping bowel shadows may however obscure fine detail. Sacroiliac joint is unremarkable. No widening of the pubic symphysis. The articular structures are unremarkable. SOFT TISSUES: Unremarkable. No soft tissue swelling or gas. RAD/HIP, UNI W/ Pelvis 2-3 Views IMPRESSION: No evidence of displaced pelvic or hip fracture. Electronically Signed: Mathew Plunkett MD at 16:51 EDT ,
== END | disposition home or self-care (01) ==
LOC: MTRAD 12:38
PROVIDERS: PCP Family Medicine; Referring Provider Family Medicine; Visit Provider Family Medicine
DX: M25.552 Pain in left hip (principal)
CPT/HCPCS: 73502

== ENCOUNTER 2022-05-06 11:30 | Outpatient (CLI) | payer OTHER, SELFPAY ==
--- NOTE | 2022-05-06 11:32 | RAD_ITS ---
STUDY: X-RAY - RIGHT HAND REASON FOR EXAM: Male, 61 years old. Pain. TECHNIQUE: 3 view(s) of the hand. COMPARISON: None. FINDINGS: Mild osteopenia. Mild arthrosis of the radial carpal row of the wrist and first CMC joint. Normal soft tissues. RAD/Hand Min 3 Views IMPRESSION: Osteopenia with mild osteoarthritic changes as described. No acute abnormality, chondrocalcinosis or erosive changes. Electronically Signed: Kiko Washington, at 12:14 EST ,
[2022-05-06 15:34] LABS: Uric Acid 4.5 mg/dL (3.5-7.2)
== END 2022-05-06 23:59 | disposition home or self-care (01) ==
PROVIDERS: PCP Family Medicine; Referring Provider Family Medicine; Visit Provider Family Medicine
DX: M79.641 Pain in right hand (principal)
CPT/HCPCS: 36415; 73130; 84550

== ENCOUNTER → 2022-05-13 | Outpatient (CLI) | payer OTHER, SELFPAY ==
--- NOTE | 2022-05-13 | LES_PTH ---
PATIENT: LUKE CARR [facility] U#:[id number] AGE/SX: 61/M ROOM: RE05/13/[address]: Dr. Reyes Smith MD : 1960 BED: DIS: 05/13/2022 SPEC #: [id number] RECD: 05/13/22 11:50 STATUS: LORA MOSQUEDA #: [id number] DAWN: 05/13/22 00:[address]: Reyes Smith DEPT: SURGICAL PATHOLOGY RECD BY: Krystal Hudson Tissues: Skin of buttock, NOS Procedures: Surgery Specimen Level IV HEADER OPERATION: Shave biopsy PRE-OP DIAGNOSIS: Rule out SCC TISSUE SUBMITTED: Shave biopsy MICROSCOPIC DIAGNOSIS Left buttock lesion, shave biopsy: Inflamed verrucous keratosis. Negative for malignancy. SJ:violeta 05/14/2022 COMMENT Case has been reviewed in consultation with Dr. Alejo who concurs with the above diagnosis. IDC:AM MICROSCOPIC DESCRIPTION Slides are reviewed. GROSS DESCRIPTION Received in fixative is one container labeled with the patient's name and designated left buttock. The specimen consists of a piece of rockwell-white skin measuring 0.5 x 0.3 x 0.1 cm. There is a raised rockwell lesion on the surface measuring 0.6 x 0.5 x 0.2 cm. The skin surface also shows focal verrucous changes. The specimen is inked, bisected and submitted entirely in one cassette. / SJ:rg 05/13/2022 TC:5 CPT: 31522
== END | disposition home or self-care (01) ==
PROVIDERS: PCP Family Medicine; Referring Provider Family Medicine; Visit Provider Family Medicine
DX: C80.1 Malignant (primary) neoplasm, unspecified (principal)
CPT/HCPCS: 88305

== ENCOUNTER 2022-07-20 09:21 | Day surgery (SDC) | payer OTHER, SELFPAY ==
[2022-07-20] MEDS: Lactated Ringers 1,000 ML 15 ML IV (09:30)
[2022-07-20 09:43] VITALS: BP 143/93; PULSE 85; RESP 18; TEMP 36.7; O2SAT 100; BMI 25.2
--- NOTE | 2022-07-20 10:02 | HP.PCM_ITS ---
[facility] - General General Date of Admission: 07/20/22 Date of Service: 07/20/22 Chief Complaint: Surveillance colonoscopy HPI Narrative LUKE CARR, is a 61 M who presents today for a surveillance colonoscopy. He has past medical history of adenomatous polyps found back in 2017 and 2011. He also has a history of diverticulosis. At this time is not have any problems per rectum. He denies any rectal bleeding. He denies any nausea, vomiting or diarrhea. He denies any chest pain shortness of breath. Overall he is in fairly good health. [facility] Medical History (Updated 07/14/22 @ 11:01 by Mariposa Mosley) Alcohol use History of colonic polyps History of stress test Smoker Tubular adenoma of colon Wears partial dentures Home Medications NK 08/06/17 [History Last Taken Unknown] Allergy/AdvReac Type Severity Reaction Status Date / Time No Known Allergies Allergy Verified 07/14/22 10:56 Surgical History (Updated 07/14/22 @ 11:01 by Mariposa Mosley) History of arthroscopy of left shoulder History of lateral meniscus repair of right knee History of lumbar fusion History of reverse total replacement of left shoulder joint Social History Smoking Status: Current some day smoker tobacco type: cigarettes ROS Review of Systems ROS Unobtainable: other Constitutional Constitutional: Denies fatigue, fever(s), poor appetite, weight gain or weight loss ENT HEENT: Denies mouth lesions Cardiovascular Cardiovascular: Denies abdominal bloating, abdominal edema or abdominal pain Respiratory/Chest Respiratory/Chest: Denies change in mental status, change in phlegm color, chest congestion or chest tightness Gastrointestinal Gastrointestinal: Denies belching, bloating, change in bowel habits, change in stool character, chewing difficulty, coffee ground emesis, constipation, cramping, diarrhea, dyspepsia, dysphagia, early satiety, excessive flatus, fecal incontinence, heartburn, hematemesis, hematochezia, hemorrhoids, loose stools, melena, nausea, odynophagia, rectal bleeding, tenesmus, vomiting or weight ying nges Genitourinary Genitourinary: Denies abdominal discomfort, burning urination or itching Musculoskeletal Musculoskeletal: Reports as per HPI; Denies muscle weakness or myalgias Integumentary Integumentary: Denies jaundice Neurologic Neurologic: Denies lack of coordination or weakness Psychiatric Psychiatric: Denies confusion, depression, memory loss, mood swings, paranoia or suicidal ideation Endocrine Endocrinology: Denies systems reviewed and no addt'l complaints, except as documented Hematologic/Lymphatic Hematologic/Lymphatic: Denies anemia, easy bleeding, easy bruising or lymphadenopathy Allergic/Immunologic Allergic/Immunologic: Denies systems reviewed and no addt'l complaints, except as documented Vital Signs Vital Signs Vital Signs: 07/20/22 09:43 07/20/22 09:43 Temperature 98.1 F Temperature Source Temporal Pulse Rate 85 Respiratory Rate 18 Respiratory Pattern Normal Blood Pressure 143/93 H Blood Pressure Mean 109 Blood Pressure Source Monitor Blood Pressure Position Semi-Fowlers Blood Pressure Location Left Arm Pulse Ox 100 Oxygen Delivery Method Room Air Weight Weight: 180 lb 12.465 oz Body Mass Index (BMI) 25.2 Physical Exam Const alert General Appearance: cooperative Orientation / Consciousness: oriented to person HEENT hearing grossly normal bilaterally Head and Scalp: normal to inspection Face and Sinus: face symmetric Nose: external nose normal Mouth: oral and palatal mucosa normal Eyes conjunctivae normal General Eye: normal appearance of both eyes Neck full ROM General: normal visual inspection Lymph Lymphatic: no lymphadenopathy noted Chest inspection of chest normal and palpation of chest normal Chest: symmetrical chest wall rise Resp normal respiratory effort Effort and Inspection: able to speak in complete sentences Cardio regular rate GI non-distended Percussion: normal to percussion Rectal Exam: deferred Neuro Speech: speech normal Gait (Neuro): normal gait Assessment & Plan Assessment/Plan (1) Personal history of colonic polyps: PLAN: He will undergo a surveillance colonoscopy. He was explained alternativ es, risk, benefits including outstanding bleeding, infection, sepsis, perforation, need for emergent surgery and . He will have an ASA of 1.
--- NOTE | 2022-07-20 10:30 | COLBX_PTH ---
PATIENT: LUKE CARR LOC: EN U#:[id number] AGE/SX: 61/M ROOM: RE07/20/[address]: Dr. Geo Chinchilla DO : 1960 BED: DIS: 07/20/2022 SPEC #: [id number] RECD: 07/20/22 13:52 STATUS: LORA REJimmie #: [id number] DAWN: 07/20/22 10:[address]: Geo Chinchilla DEPT: SURGICAL PATHOLOGY RECD BY: Faye Benitez ENTERED: 07/21/22 08:31 SP TYPE: COLON BX LONG DR: Dr. Reyes Smith MD Tissues: A - Ascending colon B - Sigmoid colon biopsy Procedures: Surgery Specimen Level IV HEADER OPERATION: Colonoscopy (MAC) PRE-OP DIAGNOSIS: History of colonic polyps TISSUE SUBMITTED: A ? Ulcer at ascending colon biopsy, B ? Polyp x2 at sigmoid colon MICROSCOPIC DIAGNOSIS A. Ulcer at ascending colon, biopsy: A fragment of colonic mucosa suspicious for focal minimal ischemic changes. B. Polyps x2 at sigmoid colon, biopsy: Fragments of tubular adenoma. SJ:violeta 07/22/2022 MICROSCOPIC DESCRIPTION Slides are reviewed. GROSS DESCRIPTION A - Received in fixative is one container labeled with the patient's name and designated ulcer at ascending colon. The specimen consists of one irregular fragment of light rockwell soft tissue that measures 0.5 x 0.5 x 0.1 cm. The specimen is totally submitted in one cassette. B - Received in fixative is one container labeled with the patient's name and designated polyp at sigmoid colon. The specimen consists of two irregular fragments of light rockwell soft tissue that in aggregate measure 0.6 x 0.5 x 0.1 cm. The specimen is totally submitted in one cassette. / AM:violeta 07/21/2022 TC:1 CPT: 64644 x2
[2022-07-20 11:10] VITALS: BP 143/93; BP 94/67; PULSE 78; RESP 16; TEMP 36.5; O2SAT 18
[2022-07-20 11:15] VITALS: BP 143/93; BP 97/71; PULSE 78; RESP 16; O2SAT 96
--- NOTE | 2022-07-20 11:18 | OP.COLON_ITS ---
Patient Name: Keshawn Hua Procedure Date: 07/20/2022 10:38 AM Date of : 1960 Age: 61 Procedure: Colonoscopy Indications: Follow-up for history of adenomatous polyps in the colon Providers: Geo Chinchilla DO Medicines: Monitored Anesthesia Care Patient Profile: This is a 61 year old male. Refer to note in patient chart for documentation of history and physical. Last Colonoscopy: several years ago. Complications: No immediate complications. Procedure: Pre-Anesthesia Assessment: - Prior to the procedure, a History and Physical was performed, and patient medications and allergies were reviewed. The risks and benefits of the procedure and the sedation options and risks were discussed with the patient. All questions were answered and informed consent was obtained. Patient identification and proposed procedure were verified by the physician in the pre-procedure area. Mental Status Examination: alert and oriented. Airway Examination: normal oropharyngeal airway and neck mobility. Respiratory Examination: clear to auscultation. CV Examination: normal. Prophylactic Antibiotics: The patient does not require prophylactic antibiotics. Prior Anticoagulants: The patient has taken no previous anticoagulant or antiplatelet agents. ASA Grade Assessment: II - A patient with mild systemic disease. After reviewing the risks and benefits, the patient was deemed in satisfactory condition to undergo the procedure. The anesthesia plan was to use monitored anesthesia care (MAC). Immediately prior to administration of medications, the patient was re-assessed for adequacy to receive sedatives. The heart rate, respiratory rate, oxygen saturations, blood pressure, adequacy of pulmonary ventilation, and response to care were monitored throughout the procedure. The physical status of the patient was re-assessed after the procedure. After I obtained informed consent, the scope was passed under direct vision. Throughout the procedure, the patient's blood pressure, pulse, and oxygen saturations were monitored continuously. The colonoscope was introduced through the anus and advanced to the cecum, identified by appendiceal orifice and ileocecal valve. The colonoscopy was performed without difficulty. The patient tolerated the procedure well. The quality of the bowel preparation was good. Moderate Sedation: Moderate (conscious) sedation was personally administered by an anesthesia professional. The following parameters were monitored: oxygen saturation, heart rate, blood pressure, and response to care. Scope In: 10:47:56 AM Scope Withdrawal Time 0 hours 12 minutes 17 seconds Scope Out: 11:06:08 AM Total Procedure Duration Time 0 hours 18 minutes 12 seconds Findings: The perianal and digital rectal examinations were normal. Two sessile polyps were found in the sigmoid colon. The polyps were 1 to 2 mm in size. These polyps were removed with a cold snare. Resection and retrieval were complete. Verification of patient identification for the specimen was done. Estimated blood loss was minimal. Localized mild inflammation was found in the ascending colon. Biopsies were taken with a cold forceps for histology. Verification of patient identification for the specimen was done. Estimated blood loss was minimal. Multiple small and large-mouthed diverticula were found in the recto-sigmoid colon, sigmoid colon, descending colon, splenic flexure, hepatic flexure and ascending colon. There were areas that were previously tattooed in the sigmoid colon where polyps were removed previously. Impression: - Two 1 to 2 mm polyps in the sigmoid colon, removed with a cold snare. Resected and retrieved. - Localized mild inflammation was found in the ascending colon secondary to colitis. Biopsied. - Diverticulosis in the recto-sigmoid colon, in the sigmoid colon, in the descending colon, at the splenic flexure, at the hepatic flexure and in the ascending colon. Recommendation: - Discharge patient to home. - Resume previous diet. - Continue present medications. - Await pathology results. - Repeat colonoscopy in 5 years for surveillance. Procedure Code(s): --- Professional --- 71573, Colonoscopy, flexible; with removal of tumor(s), polyp(s), or other lesion(s) by snare technique 33670, 59, Colonoscopy, flexible; with biopsy, single or multiple CPT copyright 2017 [employer]. All rights reserved. The codes documented in this report are preliminary and upon bagging salvager review may be revised to meet current compliance requirements. Geo Chinchilla DO 07/20/2022 11:18:17 AM This report has been signed electronically. Number of Addenda: 0 Note Initiated On: 07/20/2022 10:38 AM
--- NOTE | 2022-07-20 11:19 | OP.CCLET_ITS ---
07/20/2022 Dimitri Smith [address] [place] [address] Re : Colonoscopy procedure for Keshawn Isidroo Dear Dr. Smith This procedure was performed on Wednesday, July 20, 2022. My impressions and recommendations are as follows: Impressions : - Two 1 to 2 mm polyps in the sigmoid colon, removed with a cold snare. Resected and retrieved. - Localized mild inflammation was found in the ascending colon secondary to colitis. Biopsied. - Diverticulosis in the recto-sigmoid colon, in the sigmoid colon, in the descending colon, at the splenic flexure, at the hepatic flexure and in the ascending colon. Recommendations : - Discharge patient to home. - Resume previous diet. - Continue present medications. - Await pathology results. - Repeat colonoscopy in 5 years for surveillance. My findings are described in the full procedure note, which is enclosed. If I can be of further assistance, please feel free to contact me at . Sincerely, Geo Chinchilla DO 07/20/2022 11:18:17 AM This report has been signed electronically.
[2022-07-20 11:20] VITALS: BP 106/81; BP 143/93; PULSE 77; RESP 16; O2SAT 97
[2022-07-20 11:25] VITALS: BP 116/88; BP 143/93; PULSE 80; RESP 16; TEMP 36.9; O2SAT 99
[2022-07-20 12:00] VITALS: BP 143/93
== END 2022-07-20 12:04 | disposition home or self-care (01) ==
LOC: EN 09:23 → AC 09:25
PROVIDERS: PCP Family Medicine; Referring Provider Family Medicine; Visit Provider Internal Medicine Gastroenterology
PROC: 0DJD8ZZ Inspection of Lower Intestinal Tract, Via Natural or Artificial Opening Endoscopic (ICD-10-PCS; CPT 45378; principal; 2022-07-20 10:25)
DX: Z12.11 Encounter for screening for malignant neoplasm of colon (principal); K52.9 Noninfective gastroenteritis and colitis, unspecified; K57.30 Diverticulosis of large intestine without perforation or abscess without bleeding; F17.210 Nicotine dependence, cigarettes, uncomplicated; Z86.010 Personal history of colon polyps; K63.5 Polyp of colon
CPT/HCPCS: 45380; 45385; 88305; J7120